=== PATIENT | male | born 1960 | race Caucasian/White ===

== ENCOUNTER 2018-06-17 21:21 | Emergency (ER) | payer SELFPAY ==
[~2018-06-17] VITALS: Ht 165.1 cm; Wt 75.1 kg
[2018-06-17 21:34] VITALS: Ht 165.1 cm; Wt 75.1 kg
[2018-06-18] MEDS ORDERED: LIDOCAINE 4% CR TOP ONE (00:30)
[2018-06-18] MEDS ORDERED: HYDROCODONE/APAP (5/325) TAB PO ONE (00:30)
--- NOTE | 2018-06-18 00:43 | ERD ---
ER Documentation Chief Complaint Chief Complaint Bump on R shoulder x 3 weeks HPI 57-year-old male presents with history of mass in his posterior right shoulder for the past 3 weeks. States that it started off small and has recently gotten much larger. States that it is tender to palpation. Denies any fevers, chills, discharge. Allergic to penicillins. Denies past medical history. Denies medications. Denies surgeries. Denies alcohol, tobacco, drug use. Up to date on vaccines. ROS All systems reviewed and are negative except as per history of present illness. Medications Home Meds Active Scripts Hydrocodone/Acetaminophen ([place] 5-325 Tablet) 1 Each Tablet, 1 TAB PO Q6H PRN for PAIN, #10 TAB Prov:CRYSTAL FORMAN 06/18/18 Clindamycin Hcl* (Clindamycin Hcl*) 300 Mg Capsule, 300 MG PO QID for abscess for 7 Days, #28 CAP Prov:CRYSTAL FORMAN 06/18/18 Ibuprofen* (Motrin*) 600 Mg Tab, 600 MG PO Q6 for pain, #30 TAB Prov:CRYSTAL FORMAN 06/18/18 Allergies Allergies: Coded Allergies: Penicillins (Verified Allergy, Unknown, 06/17/18) PMhx/Soc Medical and Surgical Hx: pt denies Medical Hx History of Surgery: Yes (right shoulder, abdomen, head) Anesthesia Reaction: No Hx Neurological Disorder: No Hx Respiratory Disorders: No Hx Cardiac Disorders: No Hx Psychiatric Problems: No Hx Miscellaneous Medical Probl: No Hx Alcohol Use: Yes (socially) Hx Substance Use: No Hx Tobacco Use: No Smoking Status: Current every day smoker FmHx Family History: No diabetes, No coronary disease, No other Physical Exam Vitals Vital Signs Date Temp Pulse Resp B/P (MAP) Pulse Ox O2 O2 Flow FiO2 Time Delivery Rate 06/18/18 98.3 53 18 151/86 96 Room Air 01:51 (107) 06/17/18 97.2 74 16 170/82 97 21:34 (111) Physical Exam Const: No acute distress Head: Atraumatic Eyes: Normal Conjunctiva ENT: Normal External Ears, Nose and Mouth. Neck: Full range of motion. No meningismus. Resp: Clear to auscultation bilaterally Cardio: Regular rate and rhythm, no murmurs Skin: Centimeter fluctuant mass with overlying erythema noted on posterior aspect of right shoulder. No draining or lymphatic streaking. Neur: Awake and alert Psych: Normal Mood and Affect Results 24 hrs Current Medications Medications Dose Sig/Ranjeet Start Time Status Last (Trade) Ordered Route PRN Stop Time Admin Dose Reason Admin 1 tab ONCE ONCE 06/18/18 DC 06/18/18 Acetaminophen PO 00:30 06/18/18 00:48 / 00:31 Hydrocodone Bitart ([place] (5/325)) Lidocaine 1 applic ONCE ONCE 06/18/18 DC 06/18/18 (Lmx 4% Plus) TOP 00:30 06/18/18 00:48 00:31 Procedures/MDM Abscess Incision and Drainage with irrigation by me: Location: Posterior right shoulder Anesthesia: Local 1% Lidocaine Technique: Irrigated. Disrupted loculations w/ instrumentation Packing: None Complications: Neurovascularly intact post procedure 48 hour wound check. Scar minimization instructions given. 57-year-old male presents with history of mass in his posterior right shoulder for the past 3 weeks. States that it started off small and has recently gotten much larger. States that it is tender to palpation. Denies any fevers, chills, discharge. Abscess was drained without complication. Since patient is allergic to penicillins and is unsure of the type of reaction, decision was made to place patient on clindamycin. I have low suspicion for sepsis, neurovascular compromise, or other emergent complication. Patient will return in 48 hours for wound check. Patient discharged with strict ER precautions. Patient advised to follow up with PMD. All questions answered at discharge. Departure Diagnosis: Primary Impression: Abscess Condition: Stable SULYFATMATADEEPAK IRELANDEL Jun 18, 2018 00:43
[2018-06-18] MEDS ORDERED: IBUP-1542 PO (00:45)
[2018-06-18] MEDS ORDERED: CLIN300C10 PO (00:45)
[2018-06-18] MEDS ORDERED: HYDR-4011 PO (01:26)
[2018-06-18 01:51] VITALS: BP 151/86; PULSE 53; RESP 18
== END 2018-06-18 01:52 | disposition home or self-care (01) ==
LOC: FTE 21:21
DX: L02.413 Cutaneous abscess of right upper limb (principal); F17.210 Nicotine dependence, cigarettes, uncomplicated

== ENCOUNTER 2018-06-20 08:32 | Emergency (ER) | payer SELFPAY ==
[~2018-06-20] VITALS: Ht 162.6 cm; Wt 77.3 kg
[~2018-06-20 08:32] MED LIST: CLIN300C10 PO; HYDR-4011 PO; IBUP-1542 PO
[2018-06-20 08:35] VITALS: BP 162/74; PULSE 83; RESP 18; Ht 162.6 cm; Wt 77.3 kg
--- NOTE | 2018-06-20 13:38 | ERD ---
ER Documentation Chief Complaint Chief Complaint FOR RECHECK ON ABCESS RT UPPER BACK HPI 57-year-old male presenting for recheck of an abscess on his right upper back. 3 days ago patient presented for incision and drainage. Patient has been taking antibiotics as prescribed. He denies any severe pain but states that the site is very itchy. Denies other medical problems. NKDA. Surgical history denies. Social history denies ROS All systems reviewed and are negative except as per history of present illness. Medications Home Meds Active Scripts Hydrocodone/Acetaminophen ([place] 5-325 Tablet) 1 Each Tablet, 1 TAB PO Q6H PRN for PAIN, #10 TAB Prov:CRYSTAL FORMAN 06/18/18 Clindamycin Hcl* (Clindamycin Hcl*) 300 Mg Capsule, 300 MG PO QID for abscess for 7 Days, #28 CAP Prov:CRYSTAL FORMAN 06/18/18 Ibuprofen* (Motrin*) 600 Mg Tab, 600 MG PO Q6 for pain, #30 TAB Prov:CRYSTAL FORMAN 06/18/18 Allergies Allergies: Coded Allergies: Penicillins (Verified Allergy, Unknown, 06/20/18) PMhx/Soc History of Surgery: Yes (right shoulder, abdomen, head) Anesthesia Reaction: No Hx Neurological Disorder: No Hx Respiratory Disorders: No Hx Cardiac Disorders: No Hx Psychiatric Problems: No Hx Miscellaneous Medical Probl: No Hx Alcohol Use: Yes (socially) Hx Substance Use: No Hx Tobacco Use: No FmHx Family History: No diabetes, No coronary disease, No other Physical Exam Vitals Vital Signs Date Temp Pulse Resp B/P (MAP) Pulse Ox O2 O2 Flow FiO2 Time Delivery Rate 06/20/18 98.2 83 18 162/74 99 08:35 (103) Physical Exam GENERAL: The patient is well-appearing, well-nourished, in no acute distress CHEST: Clear to auscultation bilaterally. There are no rales, wheezes or rhonchi. HEART: Regular rate and rhythm. No murmurs, clicks, rubs or gallops. SKIN: Resolving abscess noted to the right shoulder blade with no continued fluctuance and drainage. Surrounding erythema noted with some mild induration. No lymphatic streaking. Procedures/MDM ER course: Bandage removed and area cleaned MDM: 57-year-old male presenting with abscess to right upper back. Patient areas healing appropriately and I have low suspicion for continued infection. I do not feel that further incision and drainage procedure was required. Patient is told to continue taking antibiotics as previously prescribed. Patient is told symptoms change or worsen to return immediately to the ER. All questions answered at discharge Departure Diagnosis: Primary Impression: Wound check, abscess Condition: Stable Patient Instructions: Abscess, Antiobiotic Treatment Only Referrals: [facility] YOU HAVE RECEIVED A MEDICAL SCREENING EXAM AND THE RESULTS INDICATE THAT YOU DO NOT HAVE A CONDITION THAT REQUIRES URGENT TREATMENT IN THE EMERGENCY DEPARTMENT. FURTHER EVALUATION AND TREATMENT OF YOUR CONDITION CAN WAIT UNTIL YOU ARE SEEN IN YOUR DOCTORS OFFICE WITHIN THE NEXT 1-2 DAYS. IT IS YOUR RESPONSIBILITY TO MAKE AN APPOINTMENT FOR FOLOW-UP CARE. IF YOU HAVE A PRIMARY DOCTOR --you should call your primary doctor and schedule an appointment IF YOU DO NOT HAVE A PRIMARY DOCTOR YOU CAN CALL OUR PHYSICIAN REFERRAL HOTLINE AT IF YOU CAN NOT AFFORD TO SEE A PHYSICIAN YOU CAN CHOSE FROM THE FOLLOWING [facility] [address] [facility] [address] [facility] [facility] [address] [facility] [address] [facility] [place] [address] [facility]. [facility]. [address] Additional Instructions: FOLLOW UP WITH YOUR PRIMARY CARE PHYSICIAN TOMORROW.Return to this facility if you are not improving as expected. KEVIN ZURITA PA-C Jun 20, 2018 13:38
== END 2018-06-20 09:22 | disposition home or self-care (01) ==
LOC: FTE 08:32
DX: Z48.01 Encounter for change or removal of surgical wound dressing (principal)
CPT/HCPCS: 99281